=== PATIENT | female | born 1995 | race African-American/Black ===

== ENCOUNTER → 2023-04-06 | Emergency (ER) | payer MEDICAID ==
[~2023-04-06] VITALS: Ht 165.1 cm; Wt 58.0 kg
[~2023-04-06] MED LIST: ACETAMINOPHEN 325MG TABLET PO ONE
[2023-04-06 11:44] VITALS: BP 159/85; PULSE 112; RESP 20; O2SAT 100
[2023-04-06 12:15] VITALS: TEMP 98.7
== END ==
LOC: ER 11:43
DX: T20.00XA Burn of unspecified degree of head, face, and neck, unspecified site, initial encounter (principal); X12.XXXA Contact with other hot fluids, initial encounter; Y93.89 Activity, other specified; Y92.89 Other specified places as the place of occurrence of the external cause; Y99.8 Other external cause status
CPT/HCPCS: 99282